=== PATIENT | female | born 1945 | race Caucasian/White ===

== ENCOUNTER 2016-10-28 19:32 | Inpatient (IN) | payer MEDICARE, OTHER ==
[2016-10-28] MEDS ORDERED: ASPIRIN 81 MG TABLET, CHEWABLE PO ONE (19:37)
[2016-10-28 20:10] LABS: ABSOLUTE BASOPHILS # (AUTO) 0.2 10^3/uL (0.0-0.2); ABSOLUTE EOSINOPHILS # (AUTO) 0.9 10^3/uL (0.0-0.6); ABSOLUTE LYMPHOCYTES (AUTO) 5.3 10^3/uL (0.5-4.7); ABSOLUTE MONOCYTES (AUTO) 1.3 10^3/uL (0.1-1.4); ABSOLUTE NEUT (AUTO) 7.1 10^3/uL (1.7-8.2); BASOPHILS % (AUTO) 1.3 % (0-2); HEMATOCRIT 42.9 % (36.0-47.0); HEMOGLOBIN 13.9 g/dL (12.0-15.5); HGB HCT DIFFERENCE -1.2; LYMPHOCYTES % (AUTO) 35.9 % (13-45); MEAN CORPUSCULAR HEMOGLOBIN 29.7 pg (27.0-33.4); MEAN CORPUSCULAR HGB CONC 32.3 g/dL (32.0-36.0); MEAN CORPUSCULAR VOLUME 92 fl (80-97); MONOCYTES % (AUTO) 8.7 % (3-13); RED BLOOD COUNT 4.67 10^6/uL (3.72-5.28); RED CELL DISTRIBUTION WIDTH 13.8 % (11.5-14.0); SEGMENTED NEUTROPHILS % (AUTO) 48.1 % (42-78); WHITE BLOOD COUNT 14.8 10^3/uL (4.0-10.5)
[2016-10-28 20:37] LABS: ALANINE AMINOTRANSFERASE 27 U/L (9-52); ALBUMIN 3.9 g/dL (3.5-5.0); ALKALINE PHOSPHATASE 90 U/L (38-126); ANION GAP 14 (5-19); ASPARTATE AMINO TRANSFERASE 24 U/L (14-36); BILIRUBIN,DIRECT 0.4 mg/dL (0.0-0.4); BILIRUBIN,TOTAL 0.5 mg/dL (0.2-1.3); BLOOD UREA NITROGEN 16 mg/dL (7-20); CALCIUM 9.5 mg/dL (8.4-10.2); CARBON DIOXIDE 29 mmol/L (22-30); CHLORIDE 101 mmol/L (98-107); CREATINE KINASE 51 U/L (30-135); CREATININE RESULT 0.82 mg/dL (0.52-1.25); GLUCOSE 103 mg/dL (75-110); POTASSIUM 3.8 mmol/L (3.6-5.0); SODIUM 144.3 mmol/L (137-145); TOTAL PROTEIN 7.7 g/dL (6.3-8.2)
--- NOTE | 2016-10-28 20:40 | RADIOLOGY REPORT (SQ) ---
EXAM DESCRIPTION: CHEST SINGLE VIEW COMPLETED DATE/TIME: 10/28/2016 8:31 pm REASON FOR STUDY: chest pain COMPARISON: 01/21/2015 EXAM PARAMETERS: NUMBER OF VIEWS: One view. TECHNIQUE: Single frontal radiographic view of the chest acquired. RADIATION DOSE: NA LIMITATIONS: None. FINDINGS: LUNGS AND PLEURA: Minimal subsegmental atelectasis/ scarring right lower lobe. No consoli dation, masses or pneumothorax. No pleural effusion. MEDIASTINUM AND HILAR STRUCTURES: No masses. Contour normal. HEART AND VASCULAR STRUCTURES: Heart stable in size. Normal vasculature. BONES: No acute findings. HARDWARE: None in the chest. OTHER: No other significant finding. IMPRESSION: NO ACUTE RADIOGRAPHIC FINDING IN THE CHEST. TECHNICAL DOCUMENTATION: JOB ID: [id number]
[2016-10-28 20:49] LABS: CREATINE KINASE MB 0.86 ng/mL (<4.55)
[2016-10-28 20:50] LABS: TROPONIN I < 0.012 ng/mL
[2016-10-28] MEDS ORDERED: HYDROMORPHONE HCL INJ/PF 2 MG/ML AMPULE ONE (21:51)
[2016-10-28] MEDS ORDERED: ONDANSETRON HCL INJ/PF 4 MG/2 ML SDV ONE (21:51)
[2016-10-28] MEDS ORDERED: HYDROMORPHONE HCL INJ/PF 2 MG/ML AMPULE IV ONE (21:53)
[2016-10-28] MEDS ORDERED: ONDANSETRON HCL INJ/PF 4 MG/2 ML SDV IV ONE (21:53)
--- NOTE | 2016-10-28 22:06 | ER Document Report ---
ED General - General Chief Complaint: Chest Pain Stated Complaint: CHEST PAIN Time Seen by Provider: 10/28/16 19:37 Mode of Arrival: Ambulatory Information source: Patient Notes: 71-year-old female presents from home with complaints of sudden abdominal pain radiating to her chest. Patient notes symptoms occurred at 5 PM after eating very oily food. pain is worse in the right upper quadrant denies any fevers or chills admits to mild nausea denies any improvement with nitro TRAVEL OUTSIDE OF THE [place] IN LAST 30 DAYS: No - HPI Onset: Just prior to arrival Onset/Duration: Sudden Quality of pain: Achy Severity: Moderate Pain Level: 2 Associated symptoms: Nausea, Vomiting Exacerbated by: Food Relieved by: Denies Similar symptoms previously: Yes Recently seen / treated by doctor: No - Related Data Allergies/Adverse Reactions: sulfamethoxazole [From ] Allergy (Verified 12/16/14 10:32) trimethoprim [From Janra] Allergy (Verified 12/16/14 10:32) Past Medical History - Social History Smoking Status: Never Smoker Cigarette use (# per day): No Chew tobacco use (# tins/day): No Smoking Education Provided: No Family History: Reviewed & Not Pertinent Pulmonary Medical History: Reports: Hx Bronchitis Past Surgical History: Reports: Hx Tonsillectomy, Hx Tubal Ligation - Immunizations Hx Diphtheria, Pertussis, Tetanus Vaccination: Yes Review of Systems - Review of Systems Notes: REVIEW OF SYSTEMS: CONSTITUTIONAL : Denies fever, chills, or sweats. Denies recent illness. EENT: Denies eye, ear, throat, or mouth pain or symptoms. Denies nasal or sinus congestion or discharge. Denies throat, tongue, or mouth swelling or difficulty swallowing. CARDIOVASCULAR: Denies chest pain. Denies palpitations or racing or irregular heart beat. Denies ankle edema. RESPIRATORY: Denies cough, cold, or chest congestion. Denies shortness of breath, difficulty breathing, or wheezing. GASTROINTESTINAL: Admits to abdominal pain into her chest GENITOURINARY: Denies difficulty urinating, painful urination, burning, frequency, blood in urine, or discharge. FEMALE GENITOURINARY: Denies vaginal bleeding, heavy or abnormal periods, irregular periods. Denies vaginal discharge or odor. MUSCULOSKELETAL: Denies back or neck pain or stiffness. Denies joint pain or swelling. SKIN: Denies rash, lesions or sores. HEMATOLOGIC : Denies easy bruising or bleeding. LYMPHATIC: Denies swollen, enlarged glands. NEUROLOGICAL: Denies confusion or altered mental status. Denies passing out or loss of consciousness. Denies dizziness or lightheadedness. Denies headache. Denies weakness or paralysis or loss of use of either side. Denies problems with gait or speech. Denies sensory loss, numbness, or tingling. Denies seizures. PSYCHIATRIC: Denies anxiety or stress. Denies depression, suicidal ideation, or homicidal ideation. ALL OTHER SYSTEMS REVIEWED AND NEGATIVE. Dictation was performed using ttwick voice recognition software PHYSICAL EXAMINATION: GENERAL: Well-appearing, well-nourished and in no acute distress. HEAD: Atraumatic, normocephalic. EYES: Pupils equal round and reactive to light, extraocular movements intact, conjunctiva are normal. ENT: Nares patent, oropharynx clear without exudates. Moist mucous membranes. NECK: Normal range of motion, supple without lymphadenopathy LUNGS: Breath sounds clear to auscultation bilaterally and equal. No wheezes rales or rhonchi. HEART: Regular rate and rhythm without murmurs ABDOMEN: Soft, tender in the right upper quadrant with mild guarding Female : deferred Musculoskeletal: Normal range of motion, no pitting or edema. No cyanosis. NEUROLOGICAL: Cranial nerves grossly intact. Normal speech, normal gait. Normal sensory, motor exams PSYCH: Normal mood, normal affect. SKIN: Warm, Dry, normal turgor, no rashes or lesions noted. Physical Exam - Vital signs Vitals: Pulse Ox 97 10/28/16 19:37 Course - Re-evaluation Re-evalutation: 10/28/16 23:25 Patient's pain is easily reproducible on palpation of the abdomen. Otherwise patient looks well, cardiac enzymes EKG noted no significant abnormality, ultrasound was consistent with cholelithiasis, surgeon was immediately consulted who agrees that it is from the gallbladder, patient will be admitted for surgery - Vital Signs Vital signs: Temp Pulse Resp BP Pulse Ox 97.5 F 14 124/80 98 10/28/16 20:03 10/28/16 22:00 10/28/16 20:01 10/28/16 22:00 - Laboratory Result Diagrams: 10/28/16 20:00 10/28/16 20:00 Laboratory results interpreted by me: 10/28/16 20:00 WBC 14.8 H Absolute Lymphocytes 5.3 H Absolute Eosinophils 0.9 H - Diagnostic Test Radiology reviewed: Image reviewed, Reports reviewed - Cholelithiasis Discharge - Discharge Clinical Impression: Gall bladder disease, Cholelithiasis with biliary colic Abdominal pain Qualifiers: Abdominal location: right upper quadrant Qualified Code(s): R10.11 - Right upper quadrant pain Admitting Provider: Surgicalist Unit Admitted: Telemetry
--- NOTE | 2016-10-28 22:06 | RADIOLOGY REPORT (SQ) ---
EXAM DESCRIPTION: U/S ABDOMEN LIMITED W/O DOP COMPLETED DATE/TIME: 10/28/2016 9:55 pm REASON FOR STUDY: RUQ pain COMPARISON: None. TECHNIQUE: Dynamic and static grayscale images acquired of the abdomen and recorded on PACS. Additio nal selected color Doppler and spectral images recorded. LIMITATIONS: None. FINDINGS: PANCREAS: No masses. No peripancreatic edema or fluid collections. LIVER: Echotexture is coarse with increased echogenicity consistent with fatty infiltration. LIVER VASCULATURE: Normal directional flow of the main portal vein and hepatic veins. GALLBLADDER: Gallstone(s). No pericholecystic fluid. No wall thickening. ULTRASOUND-DETECTED PANDEY'S SIGN: Negative. INTRAHEPATIC DUCTS AND COMMON DUCT: CBD and intrahepatic ducts normal caliber. No filling defects. INFERIOR VENA CAVA: Normal flow. AORTA: No aneurysm. RIGHT KIDNEY: Normal size. Normal echogenicity. No solid or suspicious masses. No hydronephrosis. No calcifications. PERITONEAL AND RIGHT PLEURAL SPACE: No ascites or effusions. OTHER: No other significant finding. IMPRESSION: CHOLELITHIASIS WITHOUT SONOGRAPHIC EVIDENCE OF CHOLECYSTITIS. FATTY INFILTRATION OF THE LIVER. OTHERWISE NORMAL RIGHT UPPER QUADRANT ULTRASOUND. TECHNICAL DOCUMENTATION: JOB ID: [id number] [employer]- All Rights Reserved
--- NOTE | 2016-10-28 22:58 | PDOC H&P ---
History of Present Illness Admission Date/PCP: 10/28/16 22:13 Patient complains of: Sudden onset of right upper quadrant pain with nausea and vomiting today History of Present Illness: RIO FRIEDMAN is a 71 year old female who was in her usual state of health, when she ate a gray and egg sandwich, and then developed moderately severe pain in her epigastric region, right upper quadrant region, which radiated to her back. Patient had 4-5 episodes of nausea and vomiting, but denied hematemesis, coffee-ground vomitus, hematochezia, or melena. Patient denies any fever or chills. The patient does have a history of postprandial bloating, gaseousness, heartburn, indigestion, and early satiety. The patient has had mild to minimal pain in the right upper quadrant previously, that was relieved with Zofran, and or antacids. The patient states that this attack is the worst she is ever experienced, which was 10 out of 10 in intensity. Surgical referral was made after this patient was seen in the emergency room. Past Medical History Pulmonary Medical History: Reports: Bronchitis Past Surgical History Past Surgical History: Reports: Tonsillectomy, Tubal Ligation Social History Smoking Status: Unknown if Ever Smoked Family History Family History: Reviewed & Not Pertinent Parental Family History Reviewed: Yes - Not applicable Children Family History Reviewed: Yes Sibling(s) Family History Reviewed.: Yes Medication/Allergy Home Medications: Clindamycin HCl 300 mg PO QID #20 capsule 02/03/12 Dexamethasone [Decadron 4 Mg Tablet] 4 mg PO ASDIR #12 tablet 02/03/12 Hydrocodone Bit/Acetaminophen [Vicodin 5-500 mg Tablet] 1 - 2 tab PO Q4 PRN #15 tablet 02/03/12 Albuterol Sulfate [Ventolin Hfa] 2 puff IH Q4HP PRN #17 gm 05/25/14 Azithromycin [Zithromax 250 mg Tablet] 250 mg PO ASDIR PRN #6 tablet 05/25/14 Prednisone [Deltasone 20 mg Tablet] 40 mg PO DAILY #10 tablet 05/25/14 Albuterol Sulfate [Proair HFA Inhalation Aerosol 8.5 gm MDI] 2 puff IH Q4H PRN # 1 mdi 12/16/14 Levofloxacin [Levaquin 750 mg Tablet] 750 mg PO DAILY #10 tablet 12/16/14 Allergies/Adverse Reactions: sulfamethoxazole [From Septra] Allergy (Verified 12/16/14 10:32) trimethoprim [From Septra] Allergy (Verified 12/16/14 10:32) Physical Exam Vital Signs: Temp Pulse Resp BP Pulse Ox 97.5 F 14 124/80 98 10/28/16 20:03 10/28/16 22:00 10/28/16 20:01 10/28/16 22:00 General appearance: PRESENT: cooperative, mild distress, obese, well-developed Head exam: PRESENT: atraumatic, normocephalic Eye exam: PRESENT: conjunctiva pink, EOMI, PERRLA Ear exam: PRESENT: normal external ear exam Mouth exam: PRESENT: dry mucosa, tongue midline Neck exam: PRESENT: full ROM. ABSENT: JVD, lymphadenopathy, tenderness, thyromegaly, tracheal deviation Respiratory exam: PRESENT: clear to auscultation felicia, symmetrical Cardiovascular exam: PRESENT: systolic murmur - II/ GARRY at base of heart, suggestive of mild aortic stenosis. GI/Abdominal exam: PRESENT: guarding, normal bowel sounds, soft, tenderness - In epigastrium and right upper quadrant.. ABSENT: distended, mass, Child's sign, rebound, rigid Rectal exam: PRESENT: deferred Results Impressions: Chest X-Ray 10/28/16 19:37 IMPRESSION: NO ACUTE RADIOGRAPHIC FINDING IN THE CHEST. Abdomen Ultrasound 10/28/16 21:12 IMPRESSION: CHOLELITHIASIS WITHOUT SONOGRAPHIC EVIDENCE OF CHOLECYSTITIS. FATTY INFILTRATION OF THE LIVER. OTHERWISE NORMAL RIGHT UPPER QUADRANT ULTRASOUND. Assessment & Plan - Plan Summary Plan Summary: Patient will be scheduled for laparoscopic cholecystectomy in the a.m. The ultrasound showed cholelithiasis without cholecystitis. The patient will be started on IV antibiotics, anti-emetics, and parenteral analgesics, in preparation for surgery.
[2016-10-28] MEDS ORDERED: ERTAPENEM SODIUM INJ 1 GM VIAL IV PRN (23:01)
[2016-10-28] MEDS ORDERED: DEXTROSE 5%-LACTATED RINGERS 1,000 ML IV PRN (23:02)
[2016-10-28] MEDS ORDERED: ENOXAPARIN SODIUM INJ 40 MG/0.4 ML DISP.SYRIN SUBCUT ONE (23:59)
[2016-10-28] MEDS ORDERED: PANTOPRAZOLE SODIUM 40 MG VIAL IV ONE (23:59)
[2016-10-29] MEDS ORDERED: ERTAPENEM SODIUM 1 GM in NORMAL SALINE 50 ML IV ONE (00:15)
[2016-10-29] MEDS ORDERED: ERTAPENEM SODIUM INJ 1 GM VIAL ONE (00:17)
[2016-10-29] MEDS ORDERED: ENOXAPARIN SODIUM INJ 40 MG/0.4 ML DISP.SYRIN SUBCUT SCH (08:00)
[2016-10-29] MEDS ORDERED: BUPIVACAINE HCL 0.5 % INJ/PF 30 ML SDV ONE (08:51)
[2016-10-29] MEDS: PANTOPRAZOLE SODIUM 40 MG VIAL IV SCH ×2 (09:20→21:18)
--- NOTE | 2016-10-29 10:43 | EKG REPORT ---
SEVERITY:- ABNORMAL ECG - SINUS RHYTHM LEFT ANTERIOR FASCICULAR BLOCK LEFT VENTRICULAR HYPERTROPHY : Confirmed by: Shannon Buitrago 29-Oct-2016 10:43:13
[2016-10-29] MEDS ORDERED: HYDROMORPHONE HCL INJ/PF 2 MG/ML AMPULE ONE (11:08)
[2016-10-29] MEDS ORDERED: PROPOFOL INJ 200 MG/20 ML VIAL IV ONE (11:09)
[2016-10-29] MEDS ORDERED: MIDAZOLAM 2 MG/2 ML INJ ONE (11:09)
[2016-10-29] MEDS ORDERED: FENTANYL CITRATE INJ/PF 100 MCG/2 ML AMPUL ONE (11:09)
[2016-10-29] MEDS ORDERED: ACETAMINOPHEN 100 ML IV ONE (11:09)
[2016-10-29] MEDS ORDERED: MEPERIDINE HCL/PF INJ 25 MG/1 ML DISP.SYRIN IV PRN (11:56)
[2016-10-29] MEDS ORDERED: MORPHINE SULFATE 10 MG/ML INJ IV PRN (11:56)
[2016-10-29] MEDS ORDERED: PROMETHAZINE HCL INJ 25 MG/1 ML VIAL IV PRN (11:56)
[2016-10-29] MEDS ORDERED: FENTANYL CITRATE INJ/PF 100 MCG/2 ML AMPUL IV PRN ×3 (11:56)
[2016-10-29] MEDS ORDERED: DIPHENHYDRAMINE HCL 50 MG/ML VIAL IV PRN (11:56)
[2016-10-29] MEDS ORDERED: HYDROMORPHONE HCL INJ/PF 2 MG/ML AMPULE IV PRN (13:57)
--- NOTE | 2016-10-29 14:06 | Operative Report ---
Operative Report DATE OF SURGERY: 10/29/16 Operative Report: Laparoscopic Cholecystectomy with Open Conversion secondary to adhesions and presence of mesh from previous hernia repair. PREOPERATIVE DIAGNOSIS: Cholelithiasis with Biliary Colic POSTOPERATIVE DIAGNOSIS: Same. OPERATION: Laparoscopic Cholecystectomy with Open Conversion SURGEON: HARSHIL LEVINE ANESTHESIA: GA TISSUE REMOVED OR ALTERED: Gall Bladder and contents COMPLICATIONS: None ESTIMATED BLOOD LOSS: 10cc INTRAOPERATIVE FINDINGS: Anterior Abdominal wall mesh and adhesions of bowel to anterior abdominal wall prevented adequate visualization/access to RUQ. Patient had multiple stones in GB, which was markedly dilated with >120cc of bile. PROCEDURE: See dictation
[2016-10-29] MEDS ORDERED: MORPHINE SULFATE 10 MG/ML INJ INJ ONE (14:10)
[2016-10-29] MEDS ORDERED: MORPHINE SULFATE 10 MG/ML INJ ONE (14:15)
[2016-10-29] MEDS ORDERED: LIDOCAINE 2% INJ-PF (20 MG/ML) 10 ML AMPUL ONE (15:24)
[2016-10-29] MEDS ORDERED: SUCCINYLCHOLINE CHLORIDE INJ 200 MG/10 ML VIAL ONE (15:24)
[2016-10-29] MEDS ORDERED: GLYCOPYRROLATE INJ 0.4 MG/2 ML VIAL ONE (15:24)
[2016-10-29] MEDS ORDERED: ROCURONIUM BROMIDE INJ 50 MG/5 ML VIAL IV ONE (15:24)
[2016-10-29] MEDS ORDERED: ONDANSETRON HCL INJ/PF 4 MG/2 ML SDV ONE (15:24)
--- NOTE | 2016-10-29 17:23 | OPERATIVE REPORT E ---
Operative Report NAME: RIO FRIEDMAN : 1945 AGE: 71Y DATE OF SURGERY: 10/29/2016 ROOM: 401 PREOPERATIVE DIAGNOSIS: Cholelithiasis causing biliary colic. POSTOPERATIVE DIAGNOSIS: Cholelithiasis biliary colic. PROCEDURE: Laparoscopic cholecystectomy with open conversion. SURGEON: HARSHIL LEVINE M.D. ANESTHESIA: General. REPLACEMENT: Crystalloid. DRAINS: None. COMPLICATIONS: None. CONDITION: Stable. FINDINGS: The patient had multiple stones in the gallbladder causing biliary colic; however, because of the presence of a large mesh on the anterior abdominal wall from her previous repair many years ago, access to the right upper quadrant was difficult. There was loose bowel that was adherent to the anterior abdominal wall. Both of these factors prevented adequate access and visualization to the right upper quadrant for a laparoscopic cholecystectomy and thus open conversion was necessary. INDICATION FOR PROCEDURE: This 71-year-old female ate a gray and egg sandwich and then developed significant right upper quadrant pain, which was 10/10 that radiated to her back. The patient has a history of postprandial bloating, gastritis, indigestion, heartburn, and early satiety for the past that has been easily relieved with Zofran and [id number] drugs. However, this episode was worse than anything before, for which she came to the emergency room. The patient was found on ultrasound to have multiple stones in the gallbladder and the patient is now brought to the operating room for a surgical intervention. DESCRIPTION OF PROCEDURE: The patient was brought to the operating room suite and placed in the supine position on the operating room table. Monitoring devices were attached. IV sedation was administered and endotracheal anesthesia was achieved. The patient's abdomen was then prepped and draped in the usual sterile manner and a timeout was achieved. After all concurred, an incision was made below the umbilicus and carried through the skin and subcutaneous tissue down to the linea alba. Two stay sutures were placed in the linea alba and an incision was made. We then grasped the peritoneum and opened the peritoneum and encountered mesh below the umbilicus. We were not able to further dissect through the mesh and therefore, we then placed a Veress needle in the right upper quadrant and insufflated the abdomen. We inserted a 5 mm camera and noted that there was an edge of the mesh that was just below the umbilicus to the left of the midline and the umbilicus. We placed a 10 mm trocar here and then we placed a 10 mm camera and a placed a second 10 mm trocar in the upper abdomen just to the left of the midline in the hope that perhaps we could get access to the right upper quadrant to do a laparoscopic cholecystectomy. However, given the presence of the mesh, given the widespread placement of the mesh, and given the loops of bowel that were stuck to the anterior abdominal wall, laparoscopic approach was out of the question as there was not adequate access or visualization of the right upper quadrant. We then decided to convert to open method and all trocars were removed and the infraumbilical fascia was closed using 0-Vicryl on the UR-6 needle as we prepared to do open conversion. We then made an incision in the right upper quadrant extending just lateral to the xiphoid process and carried the incision laterally. The incision was carried through the skin and subcutaneous tissue and down through the anterior rectus sheath. The anterior rectus sheath was opened and we then encountered the mesh in the right upper quadrant, which extended to the right upper quadrant medial aspect. We cut through the mesh. We cut through the posterior rectus sheath, peritoneum, and the fascia of the anterior external oblique and interior oblique and then entered the abdomen. We then identified a markedly distended tense gallbladder and we placed laps in the abdomen to wall off the gallbladder from the transverse colon inferiorly, the stomach and duodenum medially, and again the transverse colon laterally. We then placed a Parisa retractor into the abdomen to expose the gallbladder and then we began by decompressing the gallbladder, where we removed over 120 mL of dark green bile. After decompressing the gallbladder, we grasped the fundus and the infundibulum with a Becky and we began to dissect Calot's triangle, taking down the peritoneum and serosa over Calot's triangle to expose the cystic artery and cystic duct. We then turned our attention to taking down the gallbladder in a retrograde fashion from the liver using the cautery and using right-angle clamps to dissect and isolate the peritoneum and serosa, and we dissected the gallbladder off the liver in a meticulous fashion with minimal blood loss. After detaching the gallbladder from the liver in a retrograde manner, we then continued dissecting Calot's triangle isolating the cystic duct and the cystic artery. We divided the cystic artery between hemoclips and then the cystic duct was isolated and we placed two 0-silk ties on the cystic duct, which was quite enlarged. We were able to visualize the cystic duct at the junction and we were quite proximal to this and left a long cystic duct stump. After tying off the cystic duct, we divided the cystic duct between the ties and we continued dissecting the peritoneum off the gallbladder posteriorly until the gallbladder was freed and taken from the abdominal cavity. After completing this, we irrigated the wound with normal saline. We appreciated the anatomy again, visualizing the cystic duct at the junction and there was no evidence of any bile leak. After being satisfied with our hemostasis, we then closed the abdomen using #1 Vicryl to close the anterior sheath, posterior sheath and mesh all in 1 layer. This was carried laterally to include the external and internal oblique fascia in 1 layer. After closing the fascia, we closed the subcutaneous tissue using 2-0 Vicryl and the skin was approximated using skin alba. The patient tolerated the procedure well. Sponge and instrument counts were correct. The patient was discharged to the PACU in stable condition. DICTATING PHYSICIAN: HARSHIL LEVINE M.D. [id number] PHY#: [id number] ID: [id number] JOB#: [id number] ACCT: [id number] cc:HARSHIL LEVINE M.D. >
[2016-10-30] MEDS: OXYCODONE-ACETAMINOPHEN 5-325 MG TABLET PO PRN ×2 (03:48→14:31)
[2016-10-30 05:59] LABS: ALANINE AMINOTRANSFERASE 128 U/L (9-52); ALKALINE PHOSPHATASE 69 U/L (38-126); ASPARTATE AMINO TRANSFERASE 93 U/L (14-36); BILIRUBIN,DIRECT 0.3 mg/dL (0.0-0.4); BILIRUBIN,TOTAL 0.6 mg/dL (0.2-1.3); TOTAL PROTEIN 6.1 g/dL (6.3-8.2)
[2016-10-30 07:43] LABS: APPEARANCE,URINE SLIGHTLY-CLOUDY; BILIRUBIN,URINE NEGATIVE (NEGATIVE); GLUCOSE, URINE 50 mg/dL (NEGATIVE); KETONES,URINE NEGATIVE (NEGATIVE); LEUKOCYTE ESTERASE,URINE TRACE (NEGATIVE); NITRITE,URINE NEGATIVE (NEGATIVE); PROTEIN,URINE NEGATIVE (NEGATIVE); URINE SPECIFIC GRAVITY 1.017; UROBILINOGEN,URINE NEGATIVE mg/dL (<2.0)
[2016-10-30] MEDS: PANTOPRAZOLE SODIUM 40 MG VIAL IV SCH ×2 (09:41→22:02)
[2016-10-30] MEDS: ONDANSETRON 4 MG TAB.RAPDIS PO PRN ×2 (09:43→17:41)
--- NOTE | 2016-10-30 13:18 | PDOC PROGRESS REPORT ---
Subjective Progress Note for:: 10/30/16 Subjective:: Patient is sitting at the edge of her bed, dangling. She complains of incisional soreness only, and only took a small amount of her clear liquid diet. Physical Exam Vital Signs: Temp Pulse Resp BP Pulse Ox 99.0 F 72 20 131/62 H 98 10/30/16 11:34 10/30/16 11:34 10/30/16 11:34 10/30/16 11:34 10/30/16 11:34 Intake & Output 10/29/16 10/30/16 10/31/16 06:59 06:59 06:59 Intake Total 642 4424 Output Total 350 1535 Balance 292 2889 Weight 102.8 kg 102.8 kg Respiratory exam: PRESENT: clear to auscultation felicia Cardiovascular exam: PRESENT: RRR GI/Abdominal exam: PRESENT: normal bowel sounds, soft, tenderness - Mild incisional tenderness. Results Laboratory Results: 10/30/16 10/30/16 05:10 06:40 Total Bilirubin 0.6 AST 93 H ALT 128 H Alkaline Phosphatase 69 Total Protein 6.1 L Albumin 3.0 L Urine Color YELLOW Urine Appearance SLIGHTLY-CLOUDY Urine pH 5.0 Ur Specific [place] 1.017 Urine Protein NEGATIVE Urine Glucose (UA) 50 H Urine Ketones NEGATIVE Urine Blood SMALL H Urine Nitrite NEGATIVE Ur Leukocyte Esterase TRACE H Urine WBC (Auto) 15 Urine RBC (Auto) 3 Impressions: Chest X-Ray 10/28/16 19:37 IMPRESSION: NO ACUTE RADIOGRAPHIC FINDING IN THE CHEST. Abdomen Ultrasound 10/28/16 21:12 IMPRESSION: CHOLELITHIASIS WITHOUT SONOGRAPHIC EVIDENCE OF CHOLECYSTITIS. FATTY INFILTRATION OF THE LIVER. OTHERWISE NORMAL RIGHT UPPER QUADRANT ULTRASOUND. Assessment & Plan - Plan Summary Plan Summary: We will advance diet tomorrow, and taper her IV fluids. Continue supportive therapy.
[2016-10-31] MEDS: OXYCODONE-ACETAMINOPHEN 5-325 MG TABLET PO PRN (00:21)
[2016-10-31] MEDS: PANTOPRAZOLE SODIUM 40 MG VIAL IV SCH (10:35)
--- NOTE | 2016-10-31 12:18 | PROGRESS NOTE E ---
Progress Note NAME: RIO FRIEDMAN : 1945 AGE: 71Y DATE: 10/31/2016 ROOM: 401 SUBJECTIVE: The patient is now 2 days status post laparoscopic conversion to open cholecystectomy by Dr. Marcin Reyes. She is doing well, tolerating clear liquids, voiding. She has not had a bowel movement. OBJECTIVE: VITAL SIGNS: Stable. She has had good urine output. GENERAL: No acute distress. Patient is getting up and walking around the room. ABDOMEN: The abdomen is examined. Operative dressing removed. Horatio intact. The abdomen is nontender. LABORATORY PROFILE: No labs this morning. IMPRESSION: DOING WELL STATUS POST LAPAROSCOPIC CONVERSION TO OPEN CHOLECYSTECTOMY FOR ACUTE CHOLECYSTITIS/CHOLELITHIASIS. PLAN OF THE DAY: 1. Advance diet later this afternoon as tolerated. 2. Switch to p.o. pain medications. 3. Permit patient to shower. 4. Anticipate discharge in the next 18-24 hours. DICTATING PHYSICIAN: MEENAKSHI TANG M.D. [id number] PHY#: [id number] ID: [id number] JOB#: [id number] ACCT: [id number] cc: >
[2016-10-31 17:22] VITALS: BP 122/50
--- NOTE | 2016-11-03 12:14 | DISCHARGE SUMMARY E ---
Discharge Summary NAME: RIO FRIEDMAN : 1945 AGE: 71Y ADMITTED: 10/28/2016 DISCHARGED: 10/31/2016 REASON FOR ADMISSION: ACUTE ABDOMINAL PAIN. SUMMARY OF HOSPITALIZATION: Patient is a 71-year-old white female who presents to the emergency department complaining of abdominal pain, nausea and vomiting. She was worked up and found to have evidence of acute cholecystitis with cholelithiasis based on clinical history, physical exam findings, and ultrasonography showing cholelithiasis. Patient was admitted to the surgicalist service, kept n.p.o. on IV fluids, and taken to the operating room by Dr. Marcin Reyes on 10/29/2016, where she underwent laparoscopic conversion to open cholecystectomy. Patient tolerated the procedure well. There were no postoperative complications. She tolerated the operation well. Final path report showed chronic cholecystitis with cholelithiasis. Diet was advanced. She tolerated this well and she had adequate pain control. By the second postoperative day, she was felt to be ready for discharge home and all criteria were met. FINAL DIAGNOSIS: SYMPTOMATIC CHOLELITHIASIS WITH CHOLECYSTITIS, STATUS POST LAPAROSCOPIC [id number] CHOLECYSTECTOMY BY DR. MARCIN REYES. DISPOSITION: Patient will be discharged home, care of her family. Followup with Dr. Alcantara or other tractor driver teamster at [facility] for postoperative check. She is to resume her preoperative medications, diet, and activity. DICTATING PHYSICIAN: MEENAKSHI ALCANTARA M.D. [id number] PHY#: [id number] ID: [id number] JOB#: [id number] ACCT: [id number] cc:Riana LIRIANO M.D. >
== END 2016-10-31 15:50 | disposition home or self-care (01) | DRG 416 ==
LOC: ER 19:32 → UNDOADMIN 22:13 → EH 22:13 → 4N 22:58 → EH 22:58 → 4N 23:02
PROVIDERS: ADMIT Surgery; ATTEND Surgery
PROC: 0FJ44ZZ Inspection of Gallbladder, Percutaneous Endoscopic Approach (ICD-10-PCS; 2016-10-29)
PROC: 0FT40ZZ Resection of Gallbladder, Open Approach (ICD-10-PCS; principal; 2016-10-29 11:45)
DX: K80.10 Calculus of gallbladder with chronic cholecystitis without obstruction (principal); K66.0 Peritoneal adhesions (postprocedural) (postinfection); Z98.51 Tubal ligation status; Z88.2 Allergy status to sulfonamides; Z88.8 Allergy status to other drugs, medicaments and biological substances; Z98.890 Other specified postprocedural states
CPT/HCPCS: 36415; 71010; 76705; 790; 80053; 80076; 81001; 82550; 82553; 84484; 85025; 88304; 93005; 93010; 96374; 96375; 99285; J0131; J0330; J1170; J1335; J2250; J2270; J2405; J2704; J3010; J3490; S0119; S0164

== ENCOUNTER → 2017-02-21 | Outpatient (CLI) | payer MEDICARE, OTHER ==
--- NOTE | 2017-02-22 19:29 | XCELERA REPORT ---
[address] [address] Transthoracic Echocardiogram Report Name: RIO FRIEDMAN Age: 71 yrs Gender: Female : 1945 Patient Status: Outpatient Patient Location: Study Date: 02/21/2017 08:12 AM Height: 64 in Weight: 230 lb BSA: 2.1 m2 Procedure: A complete two-dimensional transthoracic echocardiogram was performed (2D, M-mode, spectral and color flow Doppler). The study was technically difficult with many images being suboptimal in quality. Reason For Study: MURMUR Ordering Physician: HUGO WREN PA-C Performed By: Jackie Espinosa Interpretation Summary The left ventricular ejection fraction is normal. There is borderline concentric left ventricular hypertrophy. Doppler measurements suggest pseudonormalized left ventricular relaxation, which is associated with grade II/IV or mild to moderate diastolic dysfunction The left ventricle is grossly normal size. Wall motion cannot be accurately commented on, but no definite regional wall motion abnormalities noted. The right ventricular systolic function is normal. The left atrium is mildly dilated. The right atrium is normal in size There is a trace to mild amount of mitral regurgitation There is no mitral valve stenosis. There is a trace amount of aortic regurgitation There is no aortic valve stenosis There is a trace or physiologic amount of tricuspid regurgitation Tricuspid regurgitation jet envelope not well defined to measure RV systolic pressure accurately. The aortic root is not well visualized but is probably normal size. The inferior vena cava appeared normal and decreased < 50% with respiration (RAP 10-15 mmHg) There is no pericardial effusion. MMode/2D Measurements & Calculations RVDd: 2.8 cm LVIDd: 5.1 cm FS: 31.6 % Ao root diam: 2.9 cm IVSd: 0.76 cm LVIDs: 3.5 cm EDV(Teich): 122.1 ml LVPWd: 0.77 cmESV(Teich): 49.8 ml Ao root area: 6.8 cm2 EF(Teich): 59.2 % LA dimension: 4.1 cm LVOT diam: 2.0 cm LVOT area: 3.0 cm2 Doppler Measurements & Calculations MV E max clau: MV P1/2t max clau: Ao V2 max: LV V1 max P.1 cm/sec 73.1 cm/sec 220.1 cm/sec 5.2 mmHg MV A max clau: MV P1/2t: 78.4 msec Ao max PG: LV V1 mean P.7 cm/sec MVA(P1/2t): 2.8 cm2 19.4 mmHg 2.8 mmHg MV E/A: 0.73 MV dec slope: Ao V2 mean: LV V1 max: 272.9 cm/sec2 155.4 cm/sec 114.0 cm/sec Ao mean PG: LV V1 mean: 10.9 mmHg 77.7 cm/sec Ao V2 VTI: 53.1 cmLV V1 VTI: MICHAEL(I,D): 1.4 cm2 24.4 cm MICHAEL(V,D): 1.6 cm2 SV(LVOT): 74.1 ml PA V2 max: TR max clau: 79.0 cm/sec 214.5 cm/sec PA max P.5 mmHg TR max P.4 mmHg Left Ventricle The left ventricle is grossly normal size. There is borderline concentric left ventricular hypertrophy. The left ventricular ejection fraction is normal. Doppler measurements suggest pseudonormalized left ventricular relaxation, which is associated with grade II/IV or mild to moderate diastolic dysfunction. Wall motion cannot be accurately commented on, but no definite regional wall motion abnormalities noted. Right Ventricle The right ventricle is grossly normal size. There is normal right ventricular wall thickness. The right ventricular systolic function is normal. Atria The right atrium is normal in size. The left atrium is mildly dilated. Interarterial septum not well visualized and not well dopplered. Cannot comment on ASD/PFO presence. Mitral Valve The mitral valve leaflets are sclerotic, but show no functional abnormalities. There is no mitral valve stenosis. There is a trace to mild amount of mitral regurgitation. Aortic Valve The aortic valve is mildly calcified. There is no aortic valve stenosis. There is a trace amount of aortic regurgitation. Tricuspid Valve The tricuspid valve is not well visualized, but is grossly normal. There is no tricuspid stenosis. There is a trace or physiologic amount of tricuspid regurgitation. Tricuspid regurgitation jet envelope not well defined to measure RV systolic pressure accurately. Pulmonic Valve The pulmonic valve is not well visualized. Great Vessels The aortic root is not well visualized but is probably normal size. The inferior vena cava appeared normal and decreased < 50% with respiration (RAP 10-15 mmHg). Effusions There is no pericardial effusion. : HUGO WREN PA-C > Shannon Buitrago
== END ==
LOC: SP 07:39
PROVIDERS: ATTEND Physician Assistant
DX: R01.1 Cardiac murmur, unspecified (principal)
CPT/HCPCS: 93306

== ENCOUNTER → 2017-03-14 | Outpatient (CLI) | payer MEDICARE, OTHER ==
--- NOTE | 2017-03-14 18:30 | WOMENS IMAGING REPORT ---
EXAM DESCRIPTION: BILAT SCREENING MAMMO W/CAD COMPLETED DATE/TIME: 03/14/2017 1:12 pm REASON FOR STUDY: ROUTINE SCREENING; Z12.31 Z12.31 ENCNTR SCREEN MAMMOGRAM FOR MALIGNANT NEOPLASM O F LAURA COMPARISON: None. TECHNIQUE: Standard craniocaudal and mediolateral oblique views of each breast recorded using digita l acquisition. LIMITATIONS: None. FINDINGS: No masses, calcifications or architectural distortion. No areas of suspicion. Read with the assistance of CAD. .[facility] - R2 Cenova Version 1.3 .[facility] - R2 Cenova Version 1.3 .[facility] - R2 Cenova Version 2.4 .[facility] [place] Cenova Version 2.4 .[facility] - R2 [employer] Version 9.2 IMPRESSION: NORMAL MAMMOGRAM. BIRADS 1. BREAST DENSITY: a. The breasts are almost entirely fatty. BIRAD: 1 NEGATIVE RECOMMENDATION: ROUTINE SCREENING COMMENT: The patient has been notified of the results by letter per SA requirements. Additional no tification policies are in place for contacting patient with suspicious or incomplete findings. Quality ID #[id number]: [employer] recommends an annual screening mammogram for women aged 40 years or over. This facility utilizes a reminder system to ensure that all patients receive reminder letters, and/or direct phone calls for appointments. This includes reminders for routine scr eening mammograms, diagnostic mammograms, or other Breast Imaging Interventions when appropriate. Th is patient will be placed in the appropriate reminder system. The [employer] [employer] (A[employer]) has developed recommendations for screening MRI of the breast s in certain patient populations, to be used in conjunction with mammography. Breast MRI surveillanc e may be appropriate for women with more than 20% lifetime risk of developing breast cancer as deter mined by genetic testing, significant family history of the disease, or history of mantle radiation f or Hodgkins Disease. ACR Practice Guidelines 2008. TECHNICAL DOCUMENTATION: FINDING NUMBER: (1) ASSESSMENT: (1) JOB ID: [id number] [employer]- All Rights Reserved
== END ==
LOC: WI 11:04
PROVIDERS: ATTEND Family Medicine
DX: Z12.31 Encounter for screening mammogram for malignant neoplasm of breast (principal)
CPT/HCPCS: 77067; G0202

== ENCOUNTER → 2018-07-10 | Outpatient (CLI) | payer MEDICARE, OTHER ==
--- NOTE | 2018-07-10 12:41 | RADIOLOGY REPORT (SQ) ---
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 TECHNIQUE: CT scanogram of the bilateral lower extremities is performed including pelvis to ankles. Measurements of femur, tibia, and entire lower extremities performed by the radiologist and saved to PACS. All CT scanners at this facility use dose modulation, iterative reconstruction, and/or weight based d osing when appropriate to reduce radiation dose to as low as reasonably achievable (ALARA). [facility]: Dose Right [facility]: CareDose [facility]: Dose Right [facility]: Teradose 4D [facility]: Geospiza RADIATION DOSE: 0.1 mGy. LIMITATIONS: None. FINDINGS: RIGHT: FEMUR: 44.6 cm. TIBIA: 34.7 cm. TOTAL RIGHT LOWER EXTREMITY LENGTH: 79.6 cm. LEFT: FEMUR: 44.3 cm. TIBIA: 34.2 cm. TOTAL LEFT LOWER EXTREMITY LENGTH: 79.1 cm. IMPRESSION: LEG LENGTH MEASUREMENTS DETAILED ABOVE. TECHNICAL DOCUMENTATION: JOB ID: [id number] Quality ID # [id number]: Final reports with documentation of one or more dose reduction techniques (e.g., Au tomated exposure control, adjustment of the mA and/or kV according to patient size, use of iterative reconstruction technique) 2010 [employer] All Rights Reserved Reading location - IP/workstation name: [email or web address]
== END ==
LOC: RAD 10:12
PROVIDERS: ATTEND Podiatrist Foot & Ankle Surgery
DX: Q72.819 Congenital shortening of unspecified lower limb (principal)
CPT/HCPCS: 77073